=== PATIENT | female | born 2000 | race Caucasian/White ===

== ENCOUNTER → 2021-04-12 15:20 | Outpatient (BNVA) | payer OTHER, SELFPAY | PROVIDERS: Family Provider Family Medicine; PCP Family Medicine; Visit Provider Obstetrics & Gynecology | DX: Z12.4 Encounter for screening for malignant neoplasm of cervix (principal) | CPT/HCPCS: 88175 ==

== ENCOUNTER → 2021-08-23 08:14 | Outpatient (BNVA) | payer OTHER, SELFPAY | PROVIDERS: Family Provider Family Medicine; PCP Family Medicine; Visit Provider Nurse Practitioner Women's Health | DX: N92.6 Irregular menstruation, unspecified (principal) | CPT/HCPCS: 81025 ==

== ENCOUNTER → 2021-09-12 11:05 | Outpatient (BNVA) | payer OTHER, SELFPAY | PROVIDERS: Family Provider Family Medicine; PCP Family Medicine; Visit Provider Obstetrics & Gynecology | DX: Z34.90 Encounter for supervision of normal pregnancy, unspecified, unspecified trimester (principal) | CPT/HCPCS: 80307; 84315; 85027; 86592; 86762; 86777; 86803; 86850; 86900; 87086; 87340; 87806 ==

== ENCOUNTER → 2021-09-26 12:00 | Outpatient (BNVA) | payer OTHER, SELFPAY | PROVIDERS: Family Provider Family Medicine; PCP Family Medicine; Visit Provider Obstetrics & Gynecology | DX: Z34.80 Encounter for supervision of other normal pregnancy, unspecified trimester (principal) | CPT/HCPCS: 84315; 87491; 87591 ==

== ENCOUNTER → 2022-01-17 11:45 | Outpatient (BNVA) | payer OTHER, SELFPAY | PROVIDERS: Family Provider Family Medicine; PCP Family Medicine; Visit Provider Obstetrics & Gynecology | DX: Z34.90 Encounter for supervision of normal pregnancy, unspecified, unspecified trimester (principal) | CPT/HCPCS: 81000; 82950; 85025 ==

== ENCOUNTER → 2022-03-15 08:25 | Outpatient (BNVA) | payer OTHER, SELFPAY | PROVIDERS: Family Provider Family Medicine; PCP Family Medicine; Visit Provider Nurse Practitioner Women's Health | DX: Z34.90 Encounter for supervision of normal pregnancy, unspecified, unspecified trimester (principal) | CPT/HCPCS: 84315; 87081 ==

== ENCOUNTER 2022-04-09 20:18 | Inpatient (IN) | payer OTHER, SELFPAY ==
[2022-04-09] VITALS (19 sets, daily range): BP systolic 100–140; BP diastolic 62–76; PULSE 81–101; RESP 15; TEMP 37.1; O2SAT 97–99; BMI 28.9
[2022-04-09] MEDS: lactated ringers 1,000 ML 125 ML IV (20:09)
[2022-04-09 20:23] LABS: Basophils # 0.1 10^3/uL (0.0-0.1); Basophils % 0.3 %; Eosinophils # 0.1 10^3/uL (0.0-0.8); Eosinophils % 0.9 %; Hematocrit 37.9 % (37.0-47.0); Hemoglobin 12.8 g/dL (11.5-15.3); Lymphocytes # 2.9 10^3/uL (0.8-4.8); Lymphocytes % 19.7 %; Mean Corpuscular HGB Conc 33.8 g/dL (30.0-36.0); Mean Corpuscular Hemoglobin 30.8 pg (28.0-34.0); Mean Corpuscular Volume 91.3 fl (81-99); Mean Platelet Volume 10.3 fL (7.4-10.4); Monocytes # 0.9 10^3/uL (0.2-0.9); Monocytes % 6.3 %; Neutrophils # 10.62 10^3/uL (1.8-7.7); Neutrophils % 72.3 %; Nucleated Red Blood Cells % 0 %; Platelet Count 252 10^3/cmm (130-400); Red Blood Count 4.15 10^6/uL (4.1-5.3); Red Cell Distribution Width 11.9 % (12.1-15.1); White Blood Count 14.7 10^3/uL (4.0-10.0)
[2022-04-09] MEDS: lactated ringers 1,000 ML 999 ML IV (23:15)
[2022-04-10] VITALS (60 sets, daily range): BP systolic 96–187; BP diastolic 53–83; PULSE 76–119; RESP 14–16; TEMP 36.3–37.2; O2SAT 91–100
--- NOTE | 2022-04-10 00:10 | ANES.PREANE2 ---
Pre-Anesthetic Assessment Height/Weight: Height 1.75 m Weight 88.904 kg Temp Pulse Resp BP Pulse Ox O2 Del Method 98.8 F 104 H 15 125/76 99 04/09/22 19:21 04/10/22 00:32 04/09/22 20:26 04/10/22 00:29 04/10/22 00:32 04/09/22 20:26 Preop Diagnosis: IUP epidural Familial anesthetic complications: none Was Beta Mateusz taken within 24 hours: N/A Was Clonidine taken within 24 hours: N/A Last Intake: 17:00 Social No alcohol and No tobacco Exam alert and oriented x 3 Airway Submandibular: within normal limits Cervical ROM: within normal limits Mallampati: Class II Dentition: full History/ROS No significant complaints Anesthetic Plan ASA status: 2 Anesthesia: Anesthesia Evaluation and MAC Risk of > 500 ml blood loss (7ml/kg in children): No Medications/Allergies Home Medications Medication Instructions Recorded Confirmed Last Taken Type prenat.vits,jonathan,[id number]-[id number]-dognm 1 tab PO DAILY 10/25/21 04/09/22 04/09/22 History vitamin C 500 mg-multivitamin with 1 tab PO DAILY PRN Allergy Symptoms 11/29/21 04/09/22 Unknown History minerals chewable tablet (Emergen-C) breast pump (Pump In Style #1 ea 01/31/22 04/04/22 Unknown Rx Advanced) Allergies Allergy/AdvReac Type Severity Reaction Status Date / Time No Known Allergies Allergy Verified 04/09/22 19:44 Current Medications Generic Name Dose Route Start Last Admin Trade Name Freq PRN Reason Stop Dose Admin Lactated Ringer's 1,000 mls @ 125 mls/hr 04/09/22 19:45 04/09/22 20:09 Lactated Ringers IV 125 mls/hr .Q8H SUSAN Administration Lactated Ringer's 1,000 mls @ 999 mls/hr 04/09/22 23:13 04/09/22 23:15 Lactated Ringers IV 999 mls/hr .Q1H1M PRN Administration See label comments PFSH Anesthesia Medical History No pertinent past medical history Denies diabetes, asthma, hypertension, seizures, DVT/PE PCP: Dr. Wilcox Surgical History S/P tonsillectomy at age 1 Family History Family/Other Diabetes maternal great grandmother Heart disease maternal great grandmother Breast cancer maternal aunt, diagnosed in her 60s Mother Hypertension Grandmother Breast cancer maternal, diagnosed in her 80s Denies family history of Colon cancer Ovarian cancer Hyperlipidemia Uterine cancer Thyroid condition Stroke Female Reproductive History : 1 Data Anesthesia : 04/09/22 19:57 Short CBC 04/09/22 Range/Units 19:57 WBC 14.7 H (4.0-10.0) 10^3/uL Hgb 12.8 (11.5-15.3) g/dL Hct 37.9 (37.0-47.0) % MCV 91.3 (81-99) fl Plt Count 252 (130-400) 10^3/cmm Neut % (Auto) 72.3 % Neut # (Auto) 10.62 H (1.8-7.7) 10^3/uL Cardiac Studies: No Data to Display
[2022-04-10] MEDS: lactated ringers 1,000 ML 999 ML IV (00:12)
--- NOTE | 2022-04-10 00:34 | ANES.PROC ---
Anesthesia Procedures Procedure/Date: 04/10/22 epidural Epidural: Time Out Performed: Yes Consents Signed: Procedure Consent Consent: from patient, risks and benefits reviewed and patient agrees to proceed Lumbar Level: L3-L4 Epidural position: sitting Epidural procedure: sterile prep of area, 1% lidocaine to numb the area, 18 g needle, negative for paresthesia passed, test dose given, 1.5% xylocaine 1:200k epi (2% lido with 1:200k epi prepared by pharmacy), placed PCEA, no systemic response, sterile dressing applied, L.U.D. no apparent complications and 0.2% Ropiavacaine @ mls/hr (13) Additional Comments: PEG at 6.5 taped at 13 at skin
[2022-04-10] MEDS: lactated ringers 1,000 ML 125 ML IV (01:15)
[2022-04-10] MEDS: ondansetron 2 mg/ML SDV 2 mL 4 MG IVP (02:50)
[2022-04-10] MEDS: oxytocin 30 UNIT/500 ML BAG 600 UNIT IV (02:59)
--- NOTE | 2022-04-10 03:34 | PM.DELIVERY ---
Delivery Note: Date of delivery: April 10, 2022 - PRE-DELIVERY DIAGNOSIS: 21-year-old 1 para 0 at 40 weeks and 0 days GBS negative Induction-however was an active labor POST-DELIVERY DIAGNOSIS: Vaginal delivery on 04/10/2022 PROCEDURE: Vaginal delivery on 04/10/2022 ANESTHESIA: Epidural anesthesia DELIVERING PHYSICIAN: Nahomy Davis FACOG PRE-DELIVERY COURSE: Ms. Deal is a 21-year-old 1 para 0 at 39 weeks and 6 days who presented to labor and delivery at 7 PM on 04/09/2022 for scheduled induction of labor. She was noted to have contractions every 3 to 6 minutes but did not feel them. Cervix was 2 cm 50% and -2 station and tracing was category 1. She was GBS negative. She was given an IV fluid bolus however started to contract more frequently and reported that they were actually more uncomfortable. She was observed for a period of 2 hours and at 11:00 she had made cervical change to 3 to 4 cm 80% and -2 station. She also had spontaneous rupture of membranes at this time with clear fluid. She desired an epidural and this was placed without any difficulty. She made rapid cervical change and was 9 cm at 2 AM on 04/10/2022 and was notable for bag at this time. She was examined at 2:46 AM and 4 back was ruptured with clear fluid and she was +3 station at this time feeling pressure. She was set up in lithotomy position ready to push DELIVERY NOTE: She was set up in lithotomy position and was pushing effectively. She was noted to be +3 station and continued pushing well. The head delivered in ASHLEY position, nuchal cord x1 was present. The shoulders and rest of the body followed with her next push and deliver through the nuchal cord without any difficulty. The baby's mouth and nose were suctioned and the baby was placed on the mother's belly. Once cord pulsations stopped the cord was clamped and cut. The placenta delivered spontaneously intact with membranes and was discarded. The fundus was noted to be firm and well contracted. The vagina and cervix were inspected and no cervical or sulcal lacerations were noted. The perineum was noted to be intact except for bilateral labial lacerations and a first-degree perineal laceration. The labial laceration on the right side was small and was hemostatic however the left one was bleeding profusely. This was repaired with 3-0 Vicryl on an SH without any difficulty. The first-degree perineal laceration was also repaired in a similar fashion without any difficulty. Good hemostasis and reapproximation was obtained. She was noted to have a small bruise/hematoma that was stable in size during the entire repair. It was present from about 7:00 to 9:00 and extended for a length of about 3 cm from the hymenal ring. It did not appear to be expanding. Baby Vaughn chase born at 2:55 AM on 04/10/2022 with 9/10, weighing 7 pounds 9 ounces, 3430 g, 21 inches long. Placenta was delivered spontaneously intact with membranes at 2:59 AM. Cotyledons were intact , eccentrically inserted umbilical cord with 3 vessels noted. Estimated blood loss 450 mL. Complications-none, both baby and mother were left to recover in a stable condition This documentation was created by [employer] battery inspector software (known for inherent battery inspector error). Every effort was made to assure accuracy of battery inspector. Any obvious errors or omissions should be clarified with the author of the document. History History History 1 Term 1 0 Miscarriages/Ectopic 0 Living Children 1 Other History: X 1 1---> 04/10/2022, active labor at 40 weeks and 0 days, baby boy(Vaughn) weighing 7 pounds [address] [place] [facility] [place] labial laceration, first-degree perineal laceration. No complications Coding Level of Care Code Acute Dental Hygienist Mobile Coordinator for Caitling Waylon
--- NOTE | 2022-04-10 03:35 | PM.OPHPUD ---
Labor & Delivery H&P Update Date of Procedure: April 10, 2022 Date H&P Performed: 04/04/22 H&P update information: I have reviewed H&P completed within last 30 days, I have examined patient prior to procedure, Changes to prior documentation as noted here and H&P is in [facility] on date indicated Changes to previous documentation: Patient is an active labor Admission Diagnosis: Preop diagnosis: IUP
[2022-04-10 05:11] LABS: Hematocrit 33.8 % (37.0-47.0); Hemoglobin 11.6 g/dL (11.5-15.3); Mean Corpuscular HGB Conc 34.3 g/dL (30.0-36.0); Mean Corpuscular Hemoglobin 31.4 pg (28.0-34.0); Mean Corpuscular Volume 91.4 fl (81-99); Mean Platelet Volume 10.3 fL (7.4-10.4); Platelet Count 239 10^3/cmm (130-400); Red Cell Distribution Width 11.8 % (12.1-15.1)
[2022-04-10] MEDS: lanolin oint 7 gm 1 APPLIC TOPICAL (06:56)
[2022-04-10] MEDS: benzocaine-menthol 78 gm Canister 1 SPRAY TOPICAL (06:56)
--- NOTE | 2022-04-10 07:00 | PC.NURSE ---
Patient ambulated to PP room.
[2022-04-10 09:34] LABS: Hematocrit 30.8 % (37.0-47.0); Hemoglobin 10.4 g/dL (11.5-15.3)
[2022-04-10] MEDS: prenatal vitamin Capsule 1 CAP PO (09:47)
[2022-04-10] MEDS: ibuprofen 800 mg tablet PO ×3 (09:47→20:45)
[2022-04-10] MEDS: docusate sodium 100 mg Capsule PO ×2 (09:47→18:25)
[2022-04-10 16:26] LABS: Hematocrit 28.7 % (37.0-47.0); Hemoglobin 10.3 g/dL (11.5-15.3); Mean Corpuscular HGB Conc 35.9 g/dL (30.0-36.0); Mean Corpuscular Hemoglobin 31.8 pg (28.0-34.0); Mean Corpuscular Volume 88.6 fl (81-99); Mean Platelet Volume 10.2 fL (7.4-10.4); Platelet Count 203 10^3/cmm (130-400); Red Blood Count 3.24 10^6/uL (4.1-5.3); Red Cell Distribution Width 11.8 % (12.1-15.1); White Blood Count 12.7 10^3/uL (4.0-10.0)
[2022-04-11 04:00] VITALS: BP 106/70; PULSE 84; RESP 18; TEMP 36.6; O2SAT 97
--- NOTE | 2022-04-11 06:13 | ANE.PACU2 ---
Inpatient post-anesthesia follow up: Airway intact: Yes Vital signs: Temperature 97.9 F Pulse Rate 84 Respiratory Rate 18 Blood Pressure 106/70 Pulse Oximetry 97 Oxygen Delivery Me thod Room Air Oxygen Flow Rate Fraction of Inspir ed Oxygen Hydration adequate: Yes Nausea and vomiting: No Pain level: 1 Mental status: Baseline Additional Comments: EMR review
--- NOTE | 2022-04-11 07:49 | P.DS_ITS ---
Discharge Providers [employer] Date of Admission: 04/09/22 20:18 Date of Discharge: 04/11/22 Attending Provider at Admission: Nahomy Miller MD Attending Provider at Discharge: Nahomy Miller MD PRE-DELIVERY DIAGNOSIS: 21-year-old 1 para 0 at 40 weeks and 0 days GBS negative Induction-however was an active labor POST-DELIVERY DIAGNOSIS: Vaginal delivery on 04/10/2022 PROCEDURE: Vaginal delivery on 04/10/2022 ANESTHESIA: Epidural anesthesia DELIVERING PHYSICIAN: Nahomy Davis FACOG PRE-DELIVERY COURSE: Ms. Deal is a 21-year-old 1 para 0 at 39 weeks and 6 days who presented to labor and delivery at 7 PM on 04/09/2022 for scheduled induction of labor.? She was noted to have contractions every 3 to 6 minutes but did not feel them.? Cervix was 2 cm 50% and -2 station and tracing was category 1.? She was GBS negative.? She was given an IV fluid bolus however started to contract more frequently and reported that they were actually more uncomfortable.? She was observed for a period of 2 hours and at 11:00 she had made cervical change to 3 to 4 cm 80% and -2 station.? She also had spontaneous rupture of membranes at this time with clear fluid.? She desired an epidural and this was placed without any difficulty.? She made rapid cervical change and was 9 cm at 2 AM on 04/10/2022 and was notable for bag at this time.? She was examined at 2:46 AM and 4 back was ruptured with clear fluid and she was +3 station at this time feeling pressure.? She was set up in lithotomy position ready to push DELIVERY? NOTE: She was set up in lithotomy position and was pushing effectively. She was noted to be? +3 station and continued pushing well. The head delivered in ASHLEY position, nuchal cord x1 was present. The shoulders and rest of the body followed with her next push and deliver through the nuchal cord without any difficulty. The baby's mouth and nose were suctioned and the baby was placed on the mother's belly.? Once cord pulsations stopped the cord was clamped and cut.? The placenta delivered spontaneously intact with membranes and was discarded. The fundus was noted to be firm and well contracted. The vagina and cervix were inspected and no cervical or sulcal lacerations were noted.? The perineum was noted to be intact except for bilateral labial lacerations and a first-degree perineal laceration.? The labial laceration on the right side was small and was hemostatic however the left one was bleeding profusely.? This was repaired with 3-0 Vicryl on an SH without any difficulty.? The first-degree perineal laceration was also repaired in a similar fashion without any difficulty.? Good hemostasis and reapproximation was obtained.? She was noted to have a small bruise/hematoma that was stable in size during the entire repair.? It was present from about 7:00 to 9:00 and extended for a length of about 3 cm from the hymenal ring.? It did not appear to be expanding. Baby boyVaughn born at 2:55 AM on 04/10/2022 with 9/10, weighing 7 pounds 9 ounces, 3430 g, 21 inches long. Placenta was delivered spontaneously intact with membranes at 2:59 AM. Cotyledons were intact , eccentrically inserted umbilical cord with 3 vessels noted. Estimated blood loss 450 mL. Complications-none, both baby and mother were left to recover in a stable condition HOSPITAL COURSE: She underwent an uncomplicated vaginal delivery on 04/10/2022. She did well on day 0 and was ambulating well, tolerating regular diet, voiding freely, passing flatus. She was breast-feeding without difficulty and bonding well with her son. Pain was well-controlled with by mouth pain medication. She denied nausea, vomiting, fever, chills, shortness of breath, leg pain. She had moderate vaginal bleeding. Her day #0 given her vaginal hematoma at time of delivery to serial hemoglobins were done which remained stable. Vital signs were also stable. On day # 1 she continued to do well with stable vital signs and stable hemoglobin at 10.3. She was discharged home on day 1 in a stable condition, as she desired early discharge. Warning signs for endometritis, mastitis, DVT/PE were reviewed with her. Post delivery activity restrictions were also reviewed with her at all her questions were answered to her satisfaction. She will discuss contraception at her 6-week visit EXAM AT DISCHARGE: Gen.: No acute distress Heart: S1-S2 heard, regular rate and rhythm Lungs: Clear to auscultation bilaterally Abdomen: Soft, fundus firm below umbilicus, Legs: No calf tenderness, trace bilateral pitting pedal edema. CONDITION AT DISCHARGE: Stable This documentation was created by [employer] day care attendant software (known for inherent day care attendant error). Every effort was made to assure accuracy of day care attendant. Any obvious errors or omissions should be clarified with the author of the document. Primary Care Provider: Mervin Wilcox MD Reason for Visit Reason for Visit: IOL Information Peripartum Data: Infant Delivery Method: Vaginal Physical Exam Urinary Catheter Management: Rodriguez Latex: Cath Placed During This Visit: yes Urinary Catheter Date of Insertion: 04/10/22 Urinary Catheter Time of Insertion: 00:43 History History History 1 Term 1 0 Miscarriages/Ectopic 0 Living Children 1 Other History: X 1 1---> 04/10/2022, active labor at 40 weeks and 0 days, baby boy(Vaughn) weighing 7 pounds [address] Davis at [facility] [place], left labial laceration, first-degree perineal laceration. No complications Discharge Data Studies Completed and Pending Pending at discharge Category Date Time Status Hemagram Timed Lab 04/11/22 04:30 Ordered Laboratory Results WBC 12.7 10^3/uL (4.0-10.0) H 04/10/22 16:00 RBC 3.24 10^6/uL (4.1-5.3) L 04/10/22 16:00 Hgb 10.3 g/dL (11.5-15.3) L 04/10/22 16:00 Hct 28.7 % (37.0-47.0) L 04/10/22 16:00 MCV 88.6 fl (81-99) 04/10/22 16:00 MCH 31.8 pg (28.0-34.0) 04/10/22 16:00 MCHC 35.9 g/dL (30.0-36.0) 04/10/22 16:00 RDW 11.8 % (12.1-15.1) L 04/10/22 16:00 Plt Count 203 10^3/cmm (130-400) 04/10/22 16:00 MPV 10.2 fL (7.4-10.4) 04/10/22 16:00 Neut % (Auto) 72.3 % 04/09/22 19:57 Lymph % (Auto) 19.7 % 04/09/22 19:57 [place] % (Auto) 6.3 % 04/09/22 19:57 Eos % (Auto) 0.9 % 04/09/22 19:57 Baso % (Auto) 0.3 % 04/09/22 19:57 Neut # (Auto) 10.62 10^3/uL (1.8-7.7) H 04/09/22 19:57 Lymph # (Auto) 2.9 10^3/uL (0.8-4.8) 04/09/22 19:57 [place] # (Auto) 0.9 10^3/uL (0.2-0.9) 04/09/22 19:57 Eos # (Auto) 0.1 10^3/uL (0.0-0.8) 04/09/22 19:57 Baso # (Auto) 0.1 10^3/uL (0.0-0.1) 04/09/22 19:57 Nucleated RBC % (auto) 0 % 04/09/22 19:57 Nucleated RBCs # 0.0 /100WBC 04/09/22 19:57 Vitals Last Vital Signs Temp 97.9 F 04/11/22 04:00 Pulse 84 04/11/22 04:00 Resp 18 04/11/22 04:00 BP 106/70 04/11/22 04:00 Pulse Ox 97 04/11/22 04:00 O2 Del Method 04/11/22 04:00 Discharge Plan Discharge Patient Disposition: Home Condition: Stable Prescriptions: New docusate sodium 100 mg capsule 100 mg PO BID PRN (Reason: constipation) Qty: 30 0RF ibuprofen 800 mg tablet 800 mg PO Q8H Qty: 30 0RF Continued prenat.vits,jonathan,[id number] Tablet 1 tab PO DAILY Emergen-C 500 mg tablet,chewable 1 tab PO DAILY PRN (Reason: Allergy Symptoms) (DME) breast pump [Pump In Style Advanced] Device See Rx Instructions .MEDSUPPLY Qty: 1 0RF Rx Instructions: As directed Discharge Orders: Discharge Order (Routine); Ordered 04/11/22 Ordered By: Nahomy Miller Referrals: Alicia Jackson, SAEED, CHARLINE [Nurse Practitioner] - 05/22/22 10:00 am Discharge Diet: Regular Discharge Activity: Limit activity as instructed Patient Instructions: Depression (DC), Expression, Collection and Storage of Breast Milk (DC), Bleeding (DC), Preeclampsia and Eclampsia After Delivery (GEN), OB Discharge Report, OB Food/Drug Interaction Guide, Opioid Safety, OB Home Care, OB Vaginal Deliveries - [facility] Activity Restrictions/Additional Instructions: No heavy lifting for 6 weeks, pelvic rest for 6 weeks Follow-up with Alicia Woodward for 6-week visit Emergency room precautions reviewed Discharge Attestations [employer] Time Spent in Discharge Care*: greater than 30 min Coding Level of Care Code Acute Sound Engineering Technician for Zuleyka Connors
[2022-04-11] MEDS: prenatal vitamin Capsule 1 CAP PO (09:13)
[2022-04-11] MEDS: docusate sodium 100 mg Capsule PO (09:13)
[2022-04-11] MEDS: ibuprofen 800 mg tablet PO (09:13)
[2022-04-11 10:20] VITALS: BP 109/68; PULSE 84; RESP 17; TEMP 36.7
[2022-04-11 15:00] VITALS: BP 110/65; PULSE 82; RESP 17; TEMP 36.8
== END 2022-04-11 15:05 | disposition home or self-care (01) | DRG 807 ==
LOC: OPOB 20:19 → OBGYN 20:19
PROVIDERS: Admitting Provider Obstetrics & Gynecology; PCP Family Medicine; Visit Provider Obstetrics & Gynecology
DX: O48.0 Post-term pregnancy (principal); Z37.0 Single live birth; Z3A.40 40 weeks gestation of pregnancy; O69.2XX0 Labor and delivery complicated by other cord entanglement, with compression, not applicable or unspecified; O70.0 First degree perineal laceration during delivery
CPT/HCPCS: 36415; 51702; 59409; 85014; 85018; 85025; 85027; J2405; J2795

== ENCOUNTER → 2023-08-12 15:49 | Outpatient (BNVA) | payer OTHER, SELFPAY | PROVIDERS: PCP Family Medicine; Visit Provider Family Medicine | DX: L98.9 Disorder of the skin and subcutaneous tissue, unspecified (principal) | CPT/HCPCS: 88304 ==

== ENCOUNTER → 2023-09-05 13:06 | Outpatient (BNVA) | payer OTHER, SELFPAY | PROVIDERS: PCP Family Medicine; Visit Provider Family Medicine | DX: L98.9 Disorder of the skin and subcutaneous tissue, unspecified (principal) | CPT/HCPCS: 88304 ==

== ENCOUNTER → 2024-06-17 13:03 | Outpatient (BNVA) | payer OTHER, SELFPAY | PROVIDERS: PCP Family Medicine; Visit Provider Nurse Practitioner Women's Health | DX: Z01.419 Encounter for gynecological examination (general) (routine) without abnormal findings (principal) | CPT/HCPCS: 88175 ==

== ENCOUNTER 2025-04-30 23:36 | Inpatient (IN) | payer OTHER, SELFPAY ==
[2025-04-30 22:45] VITALS: BP 127/80; PULSE 112
[2025-04-30 23:01] VITALS: BP 111/64; PULSE 90
[2025-04-30 23:16] VITALS: BP 114/75; PULSE 97
[2025-04-30 23:30] VITALS: BP 107/63; PULSE 94
[2025-04-30 23:55] VITALS: BP 97/55; PULSE 93
[2025-05-01] VITALS (56 sets, daily range): BP systolic 82–134; BP diastolic 51–91; PULSE 75–114; RESP 17; TEMP 36.9; O2SAT 97–100
[2025-05-01 00:18] LABS: Hematocrit 36.0 % (36-47); Hemoglobin 12.00 g/dL (11.27-16.99); Mean Corpuscular HGB Conc 33.3 g/dL (30-55); Mean Corpuscular Hemoglobin 29.9 pg (27-33); Mean Corpuscular Volume 89.8 fl (85-98); Nucleated Red Blood Cells % 0 %; Platelet Count 250 10^3/cmm (157-399); Red Blood Count 4.01 10^6/uL (3.85-5.65); White Blood Count 11.76 10^3/uL (3.29-11.43)
[2025-05-01] MEDS: ROPivacaine syringe 100 MG/50 ML SYRINGE 10 MG EPIDURAL (09:28)
--- NOTE | 2025-05-01 09:50 | P.ANESASSM_ITS ---
Pre-Anesthetic Assessment Height/Weight: Height 1.75 m Weight 88.451 kg Pulse BP Pulse Ox O2 Del Method 93 108/58 100 Room Air 05/01/25 09:48 05/01/25 09:48 05/01/25 09:47 04/30/25 23:51 Preop Diagnosis: IUP Epidural Familial anesthetic complications: None Social No alcohol and No tobacco Exam alert, oriented x 3, clear to auscultation bilaterally and regular rate & rhythm History/ROS No significant complaints Anesthetic Plan ASA status: 2 Anesthesia: Regional (specify below) Risk of > 500 ml blood loss (7ml/kg in children): Yes, adequate IV access and fluids planned Medications/Allergies Home Medications ?Medication ?Instructions ?Recorded ?Confirmed ?Last Taken ?Type PNV 153-FA 400 mcg-om3 35 mg-dha tab PO ONCE PRN pregn deonte 06/17/24 06/17/24 04/30/25 History 25 mg-epa 5 mg-fish oil chew tablet ( Gummies) Allergies Allergy/AdvReac Type Severity Reaction Status Date / Time No Known Allergies Allergy Verified 04/30/25 23:01 Current Medications Generic Name Dose Route Start Last Admin Trade Name Freq PRN Reason Stop Dose Admin Lactated Ringer's 1,000 mls @ 999 mls/hr 05/01/25 08:14 05/01/25 09:34 Lactated Ringers IV 999 mls/hr .Q1H1M PRN Administration See label comments Ropivacaine 100 mg in 50 mls @ 10 mls/hr 05/01/25 08:14 05/01/25 09:28 Naropin Syringe EPIDURAL 10 mls/hr .Q5H PRN Administration labor pain PFSH Anesthesia Medical History No pertinent past medical history Denies diabetes, asthma, hypertension, seizures, DVT/PE PCP: Dr. Wilcox Surgical History S/P tonsillectomy at age 1 Family History Family/Other Diabetes maternal great grandmother Heart disease maternal great grandmother Breast cancer maternal aunt, diagnosed in her 60s Mother Hypertension Grandmother Breast cancer maternal, diagnosed in her 80s Denies family history of Colon cancer Ovarian cancer Hyperlipidemia Uterine cancer Thyroid disease Stroke Social History Smoking and tobacco/nicotine status: former use of tobacco/nicotine Female Reproductive History : 2 Data Anesthesia 04/30/25 22:51 Short CBC 04/30/25 Range/Units 22:51 WBC 11.76 H (3.29-11.43) 10^3/uL Hgb 12.00 (11.27-16.99) g/dL Hct 36.0 (36-47) % MCV 89.8 (85-98) fl Plt Count 250 (157-399) 10^3/cmm Neut % (Auto) 68.7 % Neut # (Auto) 8.08 H (1.8-7.7) 10^3/uL Blood Bank 04/30/25 22:51 Blood Type O Positive Rho(D) Type Rh positive Antibody Screen Negative Anesthesia Procedures Epidural Time Out Performed: Yes Consents Signed: Procedure Consent Consent: requested by attending/covering physician, from patient, from other, risks and benefits reviewed and patient agrees to proceed Lumbar Level: L3-L4 Epidural position: sitting Epidural procedure: sterile prep of area, 1% lidocaine to numb the area, 18 g needle, negative for paresthesia passed, neg for paresthesia, test dose given, 1.5% xylocaine 1:200k epi (5 ml), 0.2% Ropivacaine bolus ml (5), placed PCEA, no systemic response, sterile dressing applied, L.U.D. no apparent complications and 0.2% Ropiavacaine @ mls/hr (10) Additional Comments: PEG at 6.5 cm, threaded to 12.5 cm
--- NOTE | 2025-05-01 09:57 | PM.OPHPUD ---
Labor & Delivery H&P Update Date of Procedure: May 01, 2025 Date H&P Performed: 04/29/25 Changes to previous documentation: Spontaneous rupture membranes Admission Diagnosis: 24-year-old 2 para 1-0-0-1 at 40 weeks estimated gestational age presenting with spontaneous rupture membranes Preop diagnosis: IUP Planned procedure: Spontaneous vaginal delivery Other information: The patient is a 24-year-old 2 para 1-0-0-1 at 40 weeks estimated gestational age. She presented to the hospital with spontaneous rupture of membranes which occurred about 8 PM last night. Otherwise there were no concerns. She had consistent care. There were no concerns during her . Her blood type is O+. Her antibody screen is negative. She passed her glucose screen. She is GBS negative. She is rubella immune. The remainder of her infectious disease profile is within normal limits. Related Problem List Diagnoses 1. 40 weeks gestation of : A&P Assessment and plan 1. 40 weeks gestation of : I anticipate routine labor and vaginal delivery Status: Acute PDMP PDMP Reviewed: Not Reviewed
[2025-05-01] MEDS: oxytocin 30 UNIT/500 ML BAG 600 UNIT IV (12:17)
--- NOTE | 2025-05-01 12:24 | P.PCNOB_ITS ---
Delivery Note: Date of delivery: May 01, 2025 Pre-delivery diagnoses: 24-year-old 2 para 1-0-0-1 at 40 weeks estimated gestational age and spontaneous rupture membranes Post-delivery diagnoses: Status post spontaneous vaginal delivery Procedure: Spontaneous vaginal delivery Delivering Physician: Alvin Trotter Estimated blood loss (mL): 75 Pre-Delivery Course: The patient presented to the hospital with spontaneous rupture membranes. She was having inconsistent contractions and minimal cervical change. Cytotec 25 mcg x 1 was given. The patient gradually progressed to 8 cm with a very stretc hy cervix. I had her push a couple of times and the cervix quickly resolved. Delivery: DELIVERY: The patient progressed to complete without difficulty. She delivered a female with a weight of 7 pounds 2 ounces with Apgars of 8, 9. The baby was delivered from the JOCELIN positionand placed on the mother's abdomen. The cord was then clamped and cut. There was no nuchal cord. There was no meconium. The placenta and 3 vessel cord were delivered intact shortly thereafter. The perineum and vaginal vault were carefully examined. No lacerations were noted. Both the mother and the baby were in stable condition. Post-Delivery Status: Good History History History 2 Term 2 0 Miscarriages/Ectopic 0 Living Children 2 A&P Assessment and plan 1. Spontaneous vaginal delivery: I anticipate routine care. 2. 40 weeks gestation of : PDMP PDMP Reviewed: Not Reviewed Coding Level of Care Code Acute Code for Chg Fwd Diagnoses Spontaneous vaginal delivery O80 40 weeks gestation of Z3A.40
[2025-05-01] MEDS: benzocaine-menthol 78 gm Canister 1 SPRAY TOPICAL (14:59)
[2025-05-02 01:20] LABS: Hematocrit 31.0 % (36-47); Hemoglobin 10.20 g/dL (11.27-16.99); Mean Corpuscular HGB Conc 32.9 g/dL (30-55); Mean Corpuscular Hemoglobin 29.1 pg (27-33); Mean Corpuscular Volume 88.6 fl (85-98); Platelet Count 185 10^3/cmm (157-399); Red Blood Count 3.50 10^6/uL (3.85-5.65); White Blood Count 11.02 10^3/uL (3.29-11.43)
[2025-05-02 02:00] VITALS: BP 106/65; PULSE 74; RESP 17
--- NOTE | 2025-05-02 09:34 | PM.OBGYDC ---
Discharge Providers RETAIL [employer]AR ADVISOR Date of Admission: 04/30/25 23:36 Date of Discharge: 05/02/25 Attending Provider at Admission: Alvin Trotter MD Attending Provider at Discharge: Alvin Trotter MD Primary Care Provider: Mervin Wilcox MD Diagnoses at Discharge Discharge Diagnosis 1. Spontaneous vaginal delivery: 2. 40 weeks gestation of : Reason for Visit Reason for Visit: poss. [facility] Hospital Course Hospital Course The patient presented to the hospital at 40 weeks estimated gestational age. She had spontaneous rupture of membranes. Cytotec 25 mcg x 1 was used to augment labor. She progressed to complete without difficulty. She pushed for about 15 minutes. She had an unremarkable vertex delivery of her baby. There were no tears. Her course was also unremarkable. She had minimal bleeding. Her pain was well-controlled. She breast-fed well. There were no concerns. Information Peripartum Data: Delivery Method: Vaginal Physical Exam Narrative: The patient is alert. She appears comfortable. Her heart has a regular rate and rhythm with no murmurs appreciated. Lungs are clear to auscultation bilaterally. Her fundus is firm and below the umbilicus. Urinary Catheter Management: Rodriguez: Cath Placed During This Visit: yes Urinary Catheter Date of Insertion: 05/01/25 Urinary Catheter Time of Insertion: 09:55 History History History 2 Term 2 0 Miscarriages/Ectopic 0 Living Children 2 Discharge Data Studies Completed and Pending Laboratory Results WBC 11.02 10^3/uL (3.29-11.43) 05/02/25 01:10 RBC 3.50 10^6/uL (3.85-5.65) L 05/02/25 01:10 Hgb 10.20 g/dL (11.27-16.99) L 05/02/25 01:10 Hct 31.0 % (36-47) L 05/02/25 01:10 MCV 88.6 fl (85-98) 05/02/25 01:10 MCH 29.1 pg (27-33) 05/02/25 01:10 MCHC 32.9 g/dL (30-55) 05/02/25 01:10 RDW 12.6 % (12.1-15.1) 05/02/25 01:10 Plt Count 185 10^3/cmm (157-399) 05/02/25 01:10 MPV 10.0 fL (7.4-10.4) 05/02/25 01:10 Neut % (Auto) 68.7 % 04/30/25 22:51 Lymph % (Auto) 22.7 % 04/30/25 22:51 [place] % (Auto) 6.3 % 04/30/25 22:51 Eos % (Auto) 1.6 % 04/30/25 22:51 Baso % (Auto) 0.3 % 04/30/25 22:51 Neut # (Auto) 8.08 10^3/uL (1.8-7.7) H 04/30/25 22:51 Lymph # (Auto) 2.7 10^3/uL (0.8-4.8) 04/30/25 22:51 [place] # (Auto) 0.7 10^3/uL (0.2-0.9) 04/30/25 22:51 Eos # (Auto) 0.2 10^3/uL (0.0-0.8) 04/30/25 22:51 Baso # (Auto) 0.0 10^3/uL (0.0-0.1) 04/30/25 22:51 Nucleated RBC % (auto) 0 % 04/30/25 22:51 Nucleated RBCs # 0.0 /100WBC 04/30/25 22:51 Blood Type O Positive 04/30/25 22:51 Rho(D) Type Rh positive 04/30/25 22:51 Antibody Screen Negative 04/30/25 22:51 Vitals Last Vital Signs Temp 98.5 F 05/01/25 17:05 Pulse 74 05/02/25 02:00 Resp 17 05/02/25 02:00 BP 106/65 05/02/25 02:00 Pulse Ox 99 05/01/25 18:05 O2 Del Method Room Air 05/02/25 02:00 Results Labs OB ([facility]): Blood Type O Positive 04/30/25 Antibody Screen Negative 04/30/25 Hct, (36-47) 31.0 % L Today Hgb, (11.27-16.99) 10.20 g/dL L Today Rho(D) Type Rh positive 04/30/25 Plt Count, (157-399) 185 10^3/cmm Today Pap Smear Interpret See note 06/17/24 Discharge Plan Discharge Patient Disposition: Home Condition: Stable Prescriptions: New ibuprofen 800 mg Tablet 800 mg PO TID Qty: 45 0RF Vitamin 27 mg iron- 800 mcg Tablet 1 tab PO DAILY Qty: 90 0RF Discontinued Gummies 400 mcg-35 mg- 25 mg-5 mg tablet,chewable PO ONCE PRN (Reason: ) Discharge Order = DC NOW: Discharge Order (Routine); Ordered 05/02/25 Ordered By: Alvin Trotter Referrals: Alvin Trotter MD [Physician, Family Practice] - 6 Weeks Discharge Diet: Usual diet Discharge Activity: Limit activity as instructed Patient Instructions: Opioid Safety, Patient Portal & [place] Instructions Discharge Attestations RETAIL [employer]AR ADVISOR Time Spent in Discharge Care*: less than 30 min Coding Level of Care Code Acute Code for Chg Fwd Diagnoses Spontaneous vaginal delivery O80 40 weeks gestation of Z3A.40
[2025-05-02] MEDS: PRENATAL VIT NO.130/IRON/FOLIC 1 EACH TABLET PO (09:37)
[2025-05-02 09:40] VITALS: BP 108/71; PULSE 90; RESP 17; O2SAT 98
[2025-05-02 14:00] VITALS: BP 101/70; PULSE 85; RESP 17; TEMP 36.6; O2SAT 96
== END 2025-05-02 14:00 | disposition home or self-care (01) | DRG 807 ==
LOC: OPOB 23:37 → OBGYN 23:37
PROVIDERS: Admitting Provider Family Medicine; PCP Family Medicine; Visit Provider Family Medicine
DX: O48.0 Post-term pregnancy (principal); Z37.0 Single live birth; Z3A.40 40 weeks gestation of pregnancy
CPT/HCPCS: 36415; 51702; 59025; 59409; 83986; 85025; 85027; 86850; 86900; 99211; J2590; J2795; J7120; J7121; J9999